=== PATIENT | female | born 1980 | race Caucasian/White ===

== ENCOUNTER 2025-05-26 08:34 | Emergency (ER) | payer MEDICAID ==
[~2025-05-26] VITALS: Ht 160 cm; Wt 81.6 kg
[2025-05-26 08:40] VITALS: O2SAT 97
[2025-05-26 09:22] LABS: CHLORIDE 104 mEq/L (98-107); POTASSIUM 4.5 mEq/L (3.5-5.1); SODIUM 140 mEq/L (136-145)
[2025-05-26 09:23] LABS: CARBON DIOXIDE 27 mEq/L (21-32)
[2025-05-26 09:28] LABS: CREATININE 0.9 mg/dL (0.6-1.0); GLUCOSE 111 mg/dL (70-105); UREA NITROGEN BLOOD 15 mg/dL (9-23)
[2025-05-26 09:44] LABS: BASOPHILS % 0.6 % (0.0-2.0); EOSINOPHILS % 3.2 % (0.0-5.0); HEMOGLOBIN. 13.4 g/dL (12.0-16.0); LYMPHOCYTES % 35.3 % (20.0-50.0); MEAN CORPUSCULAR HEMOGLOBIN 28.8 pg (28.0-32.0); MEAN CORPUSCULAR HGB CONC 33.5 g/dL (31.0-37.0); MEAN PLATELET VOLUME 7.9 fl (7.4-10.4); MONOCYTES % 6.3 % (2.0-8.0); NEUTROPHILS % 54.6 % (40.0-76.0); PLATELET 303 x1000/uL (130-400); RED BLOOD CELL COUNT 4.65 mill/uL (4.2-5.4); RED CELL DISTRIBUTION WIDTH 13.4 % (11.6-14.6); WHITE BLOOD COUNT 6.9 x1000/uL (4.5-11.0)
[2025-05-26] MEDS: ACETAMINOPHEN 325MG TABLET PO ONE (10:02)
[2025-05-26] MEDS: METHOCARBAMOL 500MG TABLET PO ONE (10:03)
[2025-05-26 10:20] LABS: TROPONIN I HIGH SENSITIVITY < 4 ng/L (3.0-34)
[2025-05-26] MEDS ORDERED: METH-653 MT (10:38)
[2025-05-26] MEDS ORDERED: IBUP-2029 MT (10:38)
[2025-05-26 10:50] VITALS: BP 140/82; PULSE 74; RESP 18; TEMP 36.7; O2SAT 100
== END 2025-05-26 10:52 | disposition home or self-care (01) ==
LOC: ER 08:34
DX: S33.5XXA Sprain of ligaments of lumbar spine, initial encounter (principal); R07.89 Other chest pain; G44.209 Tension-type headache, unspecified, not intractable; E78.00 Pure hypercholesterolemia, unspecified; Z79.899 Other long term (current) drug therapy; X58.XXXA Exposure to other specified factors, initial encounter; Y93.89 Activity, other specified; Y92.89 Other specified places as the place of occurrence of the external cause; Y99.8 Other external cause status
CPT/HCPCS: 36415; 71045; 80048; 84484; 85025; 93005; 99285